=== PATIENT | female | born 1950 | race Caucasian/White ===

== ENCOUNTER 2017-02-02 06:31 | Inpatient (IN) | payer BC, MEDICARE ==
[~2017-02-02] VITALS: Ht 158.8 cm; Wt 59.2 kg
[2017-02-02] MEDS ORDERED: THROMBIN 5,000 UNIT VIAL TP ONE (06:46)
[2017-02-02] MEDS ORDERED: VANCOMYCIN 1,000 MG ONE (06:46)
[2017-02-02] MEDS ORDERED: LIDOCAINE/PF 0.5% ,50ML ONE ×2 (06:46→10:08)
[2017-02-02] MEDS ORDERED: BUPIVACAINE/PF 0.25% ONE (06:46)
[2017-02-02] MEDS ORDERED: EPINEPHRINE 1 MG/ML, 1ML ONE (06:47)
[2017-02-02] MEDS ORDERED: LIDOCAINE 1%, 2ML ONE (06:49)
[2017-02-02] MEDS ORDERED: TRAM50TA2 PO (06:55)
[2017-02-02] MEDS ORDERED: ZOLP12.52 PO (06:55)
[2017-02-02 06:56] VITALS: BP 136/87
[2017-02-02] MEDS ORDERED: SUFentanil 50 MCG/ML, 1ML ONE (07:09)
[2017-02-02] MEDS ORDERED: MIDAZOLAM 1 MG/ML, 2ML ONE (07:09)
[2017-02-02] MEDS ORDERED: LACTATED RINGERS 1,000 ML IV SCH (07:09)
[2017-02-02] MEDS ORDERED: PROPOFOL 10 MG/ML, 20ML ONE (07:14)
[2017-02-02] MEDS ORDERED: CEFAZOLIN 1,000 MG ONE ×2 (07:14)
[2017-02-02] MEDS ORDERED: LIDOCAINE-MPF 2% ,5ML ONE (07:14)
[2017-02-02] MEDS ORDERED: PNEUMOCOCCAL 23 VACCINE IM-VACC ONE (07:30)
[2017-02-02] MEDS ORDERED: LIDOCAINE 4%, 4 ML SYR/CANN TP ONE (07:44)
[2017-02-02] MEDS ORDERED: NEOSTIGMINE 1 MG/ML, 10ML ONE (07:47)
[2017-02-02] MEDS ORDERED: ROCURONIUM 10 MG/ML ONE (07:50)
[2017-02-02] MEDS ORDERED: DEXAMETHASONE 4 MG/ML, 1ML ONE ×2 (07:55)
[2017-02-02] MEDS ORDERED: OXYcodone 5 MG/5 ML ORAL.SOL UDC PO PRN (08:30)
[2017-02-02] MEDS ORDERED: ACETAMINOPHEN 325 MG TABLET PO PRN (08:30)
[2017-02-02] MEDS ORDERED: ONDANSETRON 2MG/ML, 2ML IVPush PRN (08:30)
[2017-02-02] MEDS ORDERED: FENTANYL PF 100 MCG/2ML IV PRN (08:30)
[2017-02-02] MEDS ORDERED: LABETALOL 5MG/ML, 20ML IV PRN (08:30)
[2017-02-02] MEDS ORDERED: hydrALAzine 20 MG/ML, 1ML IV PRN (08:30)
[2017-02-02] MEDS ORDERED: MEPERIDINE/PF 25MG/0.5ML IVPush PRN (08:30)
[2017-02-02] MEDS ORDERED: PROMETHAZINE 25 MG/ML, 1ML IV PRN (08:30)
[2017-02-02] MEDS ORDERED: HYDROmorphone 1 MG/ML, 1ML IV PRN (08:30)
[2017-02-02] MEDS ORDERED: ONDANSETRON 2MG/ML, 2ML ONE ×2 (09:38)
[2017-02-02] MEDS ORDERED: FENTANYL PF 100 MCG/2ML ONE (10:42)
[2017-02-02] MEDS ORDERED: ACETAMINOPHEN 650 MG/20.3 ML UDC ONE (10:42)
[2017-02-02] MEDS ORDERED: OXYcodone 5 MG/5 ML ORAL.SOL UDC ONE (10:43)
[2017-02-02] MEDS ORDERED: METHOCARBAMOL 750 MG in DEXTROSE 5% 100 ML IV ONE (11:00)
[2017-02-02] MEDS ORDERED: METHOCARBAMOL 1000MG/10 ML IVPB ONE (11:00)
[2017-02-02] MEDS ORDERED: HYDROmorphone 2 MG/ML, 1ML ONE (11:09)
[2017-02-02 12:00] VITALS: BP 128/84
[2017-02-02] MEDS ORDERED: ONDANSETRON 2MG/ML, 2ML IV PRN (13:00)
[2017-02-02] MEDS ORDERED: morphine SULFATE 10 MG/ML, 1ML IV PRN (13:00)
[2017-02-02] MEDS ORDERED: BISACODYL 10 MG SUPP PR PRN (13:00)
[2017-02-02] MEDS ORDERED: PROMETHAZINE 25 MG/ML, 1ML IM PRN (13:00)
[2017-02-02] MEDS ORDERED: HYDROcodone/APAP 10/325 MG TABLET PO PRN (13:00)
[2017-02-02] MEDS ORDERED: MAGNESIUM HYDROXIDE 8%, 30ML UDC PO PRN (13:00)
[2017-02-02] MEDS: HYDROcodone/APAP 5/325 TABLET PO PRN (15:36)
[2017-02-02] MEDS: D5%-0.9% NACL+KCL 20MEQ 1,000 ML IV SCH (15:38)
[2017-02-02] MEDS: CEFAZOLIN PMX 1GM/50ML 50 ML IVPB SCH (17:15)
[2017-02-02] MEDS ORDERED: METHOCARBAMOL 500 MG TABLET PO PRN (19:00)
[2017-02-02 19:14] VITALS: BP 136/79
[2017-02-02] MEDS ORDERED: ZOLPIDEM 5MG TABLET PO PRN (21:00)
[2017-02-02 23:32] VITALS: BP 136/79
[2017-02-03] MEDS: CEFAZOLIN PMX 1GM/50ML 50 ML IVPB SCH ×2 (00:20→08:48)
[2017-02-03] MEDS: HYDROcodone/APAP 5/325 TABLET PO PRN (00:28)
[2017-02-03] MEDS: D5%-0.9% NACL+KCL 20MEQ 1,000 ML IV SCH (03:00)
[2017-02-03 03:41] VITALS: BP 110/70
[2017-02-03 07:35] VITALS: BP 126/82
[2017-02-03] MEDS ORDERED: SENNA/DOCUSATE TABLET PO SCH (09:00)
[2017-02-03 09:57] VITALS: BP 119/74
[2017-02-03] MEDS ORDERED: HYDR-3240 PO (10:09)
[2017-02-03] MEDS ORDERED: METH500T97 PO (10:10)
[2017-02-03] MEDS ORDERED: CEPH-368 PO (10:11)
== END 2017-02-03 10:41 | disposition home or self-care (01) | DRG 473 ==
LOC: ORIP 06:31 → 4NOR 11:56 → DCLOUNGE 02-03 10:26
PROVIDERS: ADMIT Orthopaedic Surgery Orthopaedic Surgery of the Spine; ATTEND Orthopaedic Surgery Orthopaedic Surgery of the Spine
PROC: 0RG10J0 Fusion of Cervical Vertebral Joint with Synthetic Substitute, Anterior Approach, Anterior Column, Open Approach (ICD-10-PCS; 2017-02-02)
PROC: 0RB30ZZ Excision of Cervical Vertebral Disc, Open Approach (ICD-10-PCS; principal; 2017-02-02 07:30)
DX: M47.22 Other spondylosis with radiculopathy, cervical region (principal); Z23 Encounter for immunization; Z90.89 Acquired absence of other organs
CPT/HCPCS: 72040; 90732; C1713; J0171; J0690; J1100; J1170; J2001; J2250; J2405; J2704; J2710; J3010; J3370; J3490; C1762; J2270; J2800; J3480; J7120